=== PATIENT | male | born 1980 | race Caucasian/White ===

== ENCOUNTER 2018-11-13 19:48 | Emergency (ER) | payer MEDICAID ==
[~2018-11-13] VITALS: Ht 175.3 cm; Wt 153.3 kg
[2018-11-13] MEDS ORDERED: SODIUM CHLORIDE 0.9% 1,000 ML IV ONE (21:00)
[2018-11-13 21:54] LABS: Basophils # (auto) 0 uL; Basophils % (auto) 0.7 % (0.0-2.0); Eosinophils # (auto) 0 uL; Eosinophils % (auto) 0.2 % (0.0-7.0); Hematocrit 44.7 % (41.0-53.0); Hemoglobin 15.1 g/dL (13.5-17.5); Lymphocytes # (auto) 1.9 uL; Lymphocytes % (auto) 27.5 % (10.0-50.0); Mean Corpuscular Hemoglobin 29.2 pg (28.0-32.0); Mean Corpuscular Hgb Conc. 33.8 g/dL (32.0-36.0); Mean Corpuscular Volume 86.5 fL (80.0-100.0); Monocytes # (auto) 0.3 uL; Monocytes % (auto) 4.5 % (0.0-12.0); Neutrophils # (auto) 4.6 uL; Neutrophils % (auto) 67.1 % (37.0-80.0); Nucleated Red Blood Cells % 0.1 %; Platelet Count (auto) 94 10^3/uL (140-450); Red Blood Cells 5.17 10^6/uL (4.5-5.90); Red Cell Distribution Width 14.6 % (11.8-14.3); White Blood Cell 6.8 10^3/uL (4.4-10.8)
[2018-11-13 22:18] LABS: Acetaminophen < 2.0 ug/mL (10-30); Salicylate < 1.7 mg/dL (2.8-20.0)
[2018-11-13 22:21] LABS: Alanine Aminotransferase 28 U/L (16-61); Albumin 3.2 g/dL (3.4-5.0); Anion Gap 8 (5-15); Aspartate Aminotransferase 17 U/L (15-37); BUN/Creatinine Ratio 8.8; Blood Urea Nitrogen 7 mg/dL (7-18); Calcium 8.3 mg/dL (8.5-10.1); Carbon Dioxide 20 mmol/L (21-32); Chloride 116 mmol/L (98-107); GFR African American 138 mL/min; GFR Non-African American 114 mL/min; Glucose 119 mg/dL (74-106); Potassium 3.6 mmol/L (3.5-5.1); Sodium 144 mmol/L (136-145)
[2018-11-13 22:24] LABS: Alkaline Phosphatase 44 U/L (45-117); Bilirubin, Total 0.4 mg/dL (0.2-1.0); Total Protein 6.8 g/dL (6.4-8.2)
[2018-11-13 23:44] LABS: Urine Bacteria FEW /hpf (None Seen); Urine Blood Negative /uL (Negative); Urine Specific Gravity 1.015 (1.001-1.035); Urine WBC 2 /hpf (0 - 3)
[2018-11-13 23:48] LABS: Alcohol, Urine < 3.0 mg/dL (0-5); Amphetamine Screen, Urine NEGATIVE (NEGATIVE); Barbiturate Scree,Urine NEGATIVE (NEGATIVE); Benzodiazephine Screen, Urine POSITIVE (NEGATIVE); Cannabinoid Screen, Urine NEGATIVE (NEGATIVE); Cocaine Screen, Urine NEGATIVE (NEGATIVE); Phencyclidine Screen, Urine NEGATIVE (NEGATIVE)
[2018-11-13 23:56] LABS: Opiate Scree,Urine NEGATIVE (NEGATIVE)
[2018-11-14 02:11] LABS: Albumin 3.5 g/dL (3.4-5.0); Calcium 8.7 mg/dL (8.5-10.1); Potassium 3.8 mmol/L (3.5-5.1)
[2018-11-14 02:14] LABS: Bilirubin, Total 0.6 mg/dL (0.2-1.0); Total Protein 7.1 g/dL (6.4-8.2)
[2018-11-14] MEDS: DULoxetine HCL 30 MG CAP PO SCH ×2 (10:20→22:07)
[2018-11-14] MEDS ORDERED: ACETAMINOPHEN 325 MG TAB PO ONE (11:15)
[2018-11-14] MEDS: traZODone HCL 50 MG TAB PO SCH ×2 (14:00→22:07)
[2018-11-15] MEDS ORDERED: HALOPERIDOL LACTATE 5 MG/ML INJ VIAL IM ONE ×2 (01:15→03:15)
[2018-11-15] MEDS ORDERED: HALOPERIDOL LACTATE 5 MG/ML INJ VIAL IM PRN (03:00)
[2018-11-15] MEDS ORDERED: LORazepam 0.5 MG TAB PO ONE ×2 (03:45→20:45)
[2018-11-15] MEDS: traZODone HCL 50 MG TAB PO SCH ×2 (06:00→14:06)
[2018-11-15] MEDS ORDERED: HYDROcodone-ACET 5/325MG TAB PO ONE (14:15)
[2018-11-15] MEDS ORDERED: HYDROcodone-ACET 7.5/325MG TAB PO ONE (18:30)
[2018-11-15 20:35] VITALS: BP 111/70
== END 2018-11-15 20:42 | disposition short-term general hospital (02) ==
LOC: EDBD 19:48 → ER 19:51
DX: T42.4X2A Poisoning by benzodiazepines, intentional self-harm, initial encounter (principal); F32.9 Major depressive disorder, single episode, unspecified; Y92.89 Other specified places as the place of occurrence of the external cause
CPT/HCPCS: 36415; 51702; 80053; 80164; 80307; 80329; 81001; 84443; 85025; 93005; 94761; 96372; 99285; J1630; J7030

== ENCOUNTER 2019-02-04 04:33 | Emergency (ER) | payer MEDICAID ==
[~2019-02-04] VITALS: Ht 185.4 cm; Wt 136.1 kg
[2019-02-04] MEDS ORDERED: ACTIVATED CHARCOAL 50 GM/240 ML SOL ONE (04:58)
[2019-02-04] MEDS ORDERED: ACTIVATED CHARCOAL 50 GM/240 ML SOL PO ONE (05:00)
[2019-02-04] MEDS ORDERED: SODIUM CHLORIDE 0.9% 1,000 ML IV ONE ×2 (05:15→05:30)
[2019-02-04 05:36] LABS: Basophils # (auto) 0 uL; Basophils % (auto) 0.5 % (0.0-2.0); Eosinophils # (auto) 0 uL; Eosinophils % (auto) 0.3 % (0.0-7.0); Hematocrit 45.4 % (41.0-53.0); Hemoglobin 15.6 g/dL (13.5-17.5); Lymphocytes % (auto) 26.3 % (10.0-50.0); Mean Corpuscular Hemoglobin 29.4 pg (28.0-32.0); Mean Corpuscular Hgb Conc. 34.3 g/dL (32.0-36.0); Mean Corpuscular Volume 85.8 fL (80.0-100.0); Monocytes # (auto) 0.3 uL; Monocytes % (auto) 3.8 % (0.0-12.0); Neutrophils # (auto) 5.3 uL; Neutrophils % (auto) 69.1 % (37.0-80.0); Platelet Count (auto) 176 10^3/uL (140-450); Red Blood Cells 5.29 10^6/uL (4.5-5.90); Red Cell Distribution Width 14.7 % (11.8-14.3); White Blood Cell 7.6 10^3/uL (4.4-10.8)
[2019-02-04 05:50] LABS: Albumin 3.6 g/dL (3.4-5.0); Anion Gap 10 (5-15); Blood Urea Nitrogen 8 mg/dL (7-18); Calcium 8.8 mg/dL (8.5-10.1); Carbon Dioxide 23 mmol/L (21-32); Chloride 111 mmol/L (98-107); Glucose 148 mg/dL (74-106); Magnesium 1.9 mg/dL (1.6-2.6); Potassium 3.3 mmol/L (3.5-5.1); Sodium 144 mmol/L (136-145)
[2019-02-04 05:52] LABS: Salicylate < 1.7 mg/dL (2.8-20.0)
[2019-02-04 05:54] LABS: Acetaminophen < 2.0 ug/mL (10-30)
[2019-02-04 05:55] LABS: Alanine Aminotransferase 30 U/L (16-61); Alkaline Phosphatase 44 U/L (45-117); Aspartate Aminotransferase 18 U/L (15-37); BUN/Creatinine Ratio 9.5; Bilirubin, Total 0.7 mg/dL (0.2-1.0); Blood Alcohol < 3.0 mg/dL (0-5); GFR African American 131 mL/min; GFR Non-African American 108 mL/min; Total Protein 7.2 g/dL (6.4-8.2)
[2019-02-04 06:33] LABS: Urine Bacteria FEW /hpf (None Seen); Urine Blood Negative /uL (Negative); Urine Mucus FEW (None Seen); Urine Specific Gravity 1.013 (1.001-1.035); Urine WBC 1 /hpf (0 - 3)
[2019-02-04 06:48] LABS: Alcohol, Urine < 3.0 mg/dL (0-5); Amphetamine Screen, Urine NEGATIVE (NEGATIVE); Barbiturate Scree,Urine NEGATIVE (NEGATIVE); Benzodiazephine Screen, Urine POSITIVE (NEGATIVE); Cannabinoid Screen, Urine NEGATIVE (NEGATIVE); Cocaine Screen, Urine NEGATIVE (NEGATIVE); Opiate Scree,Urine NEGATIVE (NEGATIVE); Phencyclidine Screen, Urine NEGATIVE (NEGATIVE)
[2019-02-05] MEDS ORDERED: ACETAMINOPHEN 325 MG TAB PO ONE ×2 (06:00→15:30)
[2019-02-05 15:56] VITALS: BP 108/65
== END 2019-02-05 16:38 | disposition short-term general hospital (02) ==
LOC: EDBD 04:33 → ER 04:36
DX: T42.4X2A Poisoning by benzodiazepines, intentional self-harm, initial encounter (principal); Y92.89 Other specified places as the place of occurrence of the external cause; M54.5 Low back pain; G89.29 Other chronic pain
CPT/HCPCS: 36415; 71045; 80053; 80307; 80320; 80329; 81001; 82962; 83735; 83880; 84484; 85025; 93005; 99285; J7030

== ENCOUNTER 2019-12-17 12:48 | Inpatient (IN) | payer MEDICAID ==
[~2019-12-17] VITALS: Ht 185.4 cm; Wt 157.5 kg
[2019-12-17] MEDS ORDERED: SODIUM CHLORIDE 0.9% 1,000 ML IV ONE (13:02)
[2019-12-17] MEDS ORDERED: SODIUM CHLORIDE 0.9% 500 ML IVB ONE (13:02)
[2019-12-17 13:22] LABS: Basophils # (auto) 0 10 ^3/uL (0-0.2); Basophils % (auto) 0.3 % (0.0-2.0); Eosinophils # (auto) 0 10 ^3/uL (0-0.8); Hematocrit 50.4 % (41.0-53.0); Hemoglobin 17.3 g/dL (13.5-17.5); Lymphocytes # (auto) 1.4 10 ^3/uL (0.4-5.4); Lymphocytes % (auto) 12.7 % (10.0-50.0); Mean Corpuscular Hemoglobin 29.8 pg (28.0-32.0); Mean Corpuscular Hgb Conc. 34.2 g/dL (32.0-36.0); Mean Corpuscular Volume 87.1 fL (80.0-100.0); Monocytes # (auto) 0.2 10 ^3/uL (0-1.3); Monocytes % (auto) 2.1 % (0.0-12.0); Neutrophils # (auto) 9.5 10 ^3/uL (1.6-8.6); Neutrophils % (auto) 84.9 % (37.0-80.0); Nucleated Red Blood Cells % 0.1 %; Platelet Count (auto) 224 10^3/uL (140-450); Red Blood Cells 5.79 10^6/uL (4.5-5.90); Red Cell Distribution Width 14.1 % (11.8-14.3); White Blood Cell 11.2 10^3/uL (4.4-10.8)
[2019-12-17 13:39] LABS: Albumin 3.8 g/dL (3.4-5.0); Anion Gap 6 (5-15); Blood Urea Nitrogen 13 mg/dL (7-18); Carbon Dioxide 25 mmol/L (21-32); Chloride 109 mmol/L (98-107); Glucose 187 mg/dL (74-106); Magnesium 2.4 mg/dL (1.6-2.6); Potassium 4.2 mmol/L (3.5-5.1); Sodium 140 mmol/L (136-145)
[2019-12-17 13:39] LABS: Alcohol, Urine < 3.0 mg/dL (0-10); Amphetamine Screen, Urine NEGATIVE (NEGATIVE); Barbiturate Scree,Urine NEGATIVE (NEGATIVE); Benzodiazephine Screen, Urine NEGATIVE (NEGATIVE); Cannabinoid Screen, Urine NEGATIVE (NEGATIVE); Cocaine Screen, Urine NEGATIVE (NEGATIVE); Opiate Scree,Urine NEGATIVE (NEGATIVE); Phencyclidine Screen, Urine NEGATIVE (NEGATIVE)
[2019-12-17 13:45] LABS: Alanine Aminotransferase 28 U/L (16-61); Alkaline Phosphatase 57 U/L (45-117); Aspartate Aminotransferase 10 U/L (15-37); Bilirubin, Total 1.2 mg/dL (0.2-1.0); GFR African American 97 mL/min; GFR Non-African American 80 mL/min; Total Protein 8.2 g/dL (6.4-8.2)
[2019-12-17 13:48] LABS: Urine Bacteria NONE SEEN /hpf (None Seen); Urine Blood Negative /uL (Negative); Urine Mucus FEW (None Seen); Urine Specific Gravity 1.017 (1.001-1.035); Urine WBC 2 /hpf (0 - 3)
[2019-12-17] MEDS ORDERED: NITROGLYCERIN 0.4 MG SL TAB SL PRN (16:45)
[2019-12-17] MEDS ORDERED: MORPHINE SULF INJ 2 MG/ML SYRINGE 1ML IV PRN (16:45)
[2019-12-17] MEDS ORDERED: ONDANSETRON HCL 4 MG/2 ML VIAL IV PRN (16:45)
[2019-12-17] MEDS ORDERED: DEXTROSE (50%) 50ML SYRG IV PRN (16:45)
[2019-12-17] MEDS: ACCU-CHEK COMFORT CURVE STRIP VI SCH ×2 (17:43→22:00)
[2019-12-17] MEDS: InsuLIN REG 1unit/0.01ml Soln (100units/ml) SC SCH ×2 (17:47→22:00)
[2019-12-17] MEDS: D5W/SOD CHLO 0.9% 1,000 ML IV SCH (17:53)
--- NOTE | 2019-12-17 19:20 | NUR ---
Telemetry admit from [facility] admitted to Telemetry unit after SBAR received. Patient oriented to MIKAEL GAMBLE [facility], primary RN, unit, room, bed, and unit policies regarding patient care and visiting hours. Patient now on continuous telemetry monitoring, tele box # 25 and telemetry reading on arrival to unit is sinus bradycardia. Patient weighed by bedscale and encouraged to call if they need something. All questions and concerns addressed, patient verbalized understanding. Bed in lowest locked position, call light within reach, side rails up x2, fall precautions in place. Will continue to monitor Q1hr and PRN.
[2019-12-17] MEDS ORDERED: PROP80CA40 PO (19:46)
[2019-12-17] MEDS ORDERED: ERGO1CAP23 PO (19:46)
[2019-12-17] MEDS ORDERED: AMPH10TA PO (19:46)
[2019-12-17] MEDS ORDERED: MORP1TAB12 PO (19:46)
[2019-12-17] MEDS ORDERED: LURA80TA PO (19:46)
[2019-12-17] MEDS ORDERED: DULO60CA PO (19:46)
[2019-12-17] MEDS ORDERED: DIVA500T53 PO (19:46)
[2019-12-17] MEDS ORDERED: TOPI50TA32 PO (19:46)
[2019-12-17] MEDS ORDERED: BACL10TA PO (19:46)
[2019-12-17 19:50] VITALS: BP 125/77
--- NOTE | 2019-12-17 21:20 | NUR ---
Poison control Spoke with poison control for patient update, per poison control they recommend valproic acid lab redraw, acetaminophen lab, and ASA lab. Will notify hospitalist for orders.
[2019-12-17 22:00] VITALS: BP 123/70
[2019-12-18 00:28] LABS: Valproic Acid (Depakene) 41 ug/mL (50-100)
[2019-12-18 00:29] LABS: Acetaminophen < 2.0 ug/mL (10-30)
[2019-12-18] MEDS: D5W/SOD CHLO 0.9% 1,000 ML IV SCH ×4 (00:45→23:33)
[2019-12-18 05:00] VITALS: BP 115/68
--- NOTE | 2019-12-18 06:00 | NUR ---
Poison control Received a call from poison control for patient update, per poison control, recommends supportive care and monitoring patients tele PQ intervals. Continue care.
[2019-12-18] MEDS: InsuLIN REG 1unit/0.01ml Soln (100units/ml) SC SCH ×4 (06:35→22:09)
[2019-12-18] MEDS: ACCU-CHEK COMFORT CURVE STRIP VI SCH ×4 (06:35→22:10)
--- NOTE | 2019-12-18 06:44 | NUR ---
Tele psych Paper work faxed over, will place in patient chart.
[2019-12-18] MEDS: ACETAMINOPHEN 500 MG TAB PO PRN ×4 (08:59→22:16)
[2019-12-18 09:00] VITALS: BP 132/75
--- NOTE | 2019-12-18 12:00 | NUR ---
EEG COMPLETED AT BEDSIDE. PRIMARY RN ZAYRA RAE.
[2019-12-18 13:00] VITALS: BP 127/76
--- NOTE | 2019-12-18 13:05 | NUR ---
1:[address] TAYLOR IN HOUSE, STATED PT WILL LIKELY NOT NEED SWALLOW EVAL. PT GIVEN JELLO AND CRACKERS, TOLERATED WITHOUT DIFFICULTY. LUNCH TRAY GIVEN, TOLERATED APPROX. 25% LUNCH. MEDICATED WITH TYLENOL FOR BACK PAIN. COOPERATIVE WITH CARES.
--- NOTE | 2019-12-18 15:14 | NUR ---
Nutrition Consult/assessment Notes please see attached link for complete assessment [employer] needs ABW 120 [id number] kcals (17-20 kcal/kgABW), Est Protein needs: 72-96 gms/day (0.6-0.8 gm/kgABW r/t elev ammonia). Will continue to monitor and reassess prn. Addendum: 12/18/19 at [address] Amended: Links added.
--- NOTE | 2019-12-18 16:06 | NUR ---
Assessment Patient is a 39-year-old male who is alert and oriented. Prior to admission patient lived home with family and functioned independently. Prior to admission patient care for his own ADLs. Patient informed me he came to the hospital due to taking too much baclofen. Patient stated he has not been able to sleep and thought by taking more baclofen it would help him sleep at night but he began to feel nausea and vomit and was brought to the hospital via EMS. Per patient he does not have suicidal attempts. Advised patient there is a social service consult for home health safety evaluation and outpatient psychiatric. Per patient he sees Dr. Morrison at [facility] and has an appointment on 2019. Informed patient clinical information will be faxed to a contracted agency. Faxed clinical information to [facility] and [facility]. Per Chela with [facility] patient has been accepted and service to start within 24-48hrs upon d/c day. Addendum: 12/18/19 at 1607 by MATTHEW KC Amended: Links added.
[2019-12-18 16:47] VITALS: BP 113/75
--- NOTE | 2019-12-18 19:20 | NUR ---
call placed to pt mother, Madai, to bring pt meds from home. no answer, unable to leave voice mail.
[2019-12-18 22:00] VITALS: BP 127/76
[2019-12-18] MEDS: DIVALPROEX SODIUM 500 MG PO SCH (22:00)
[2019-12-19 05:00] VITALS: BP 129/70
[2019-12-19] MEDS: ACCU-CHEK COMFORT CURVE STRIP VI SCH ×2 (06:49→11:30)
[2019-12-19] MEDS: InsuLIN REG 1unit/0.01ml Soln (100units/ml) SC SCH ×2 (06:50→11:30)
[2019-12-19] MEDS: D5W/SOD CHLO 0.9% 1,000 ML IV SCH (06:54)
[2019-12-19] MEDS ORDERED: DULoxetine HCL 30 MG CAP PO SCH (07:00)
[2019-12-19] MEDS: ACETAMINOPHEN 500 MG TAB PO PRN (07:00)
[2019-12-19] MEDS ORDERED: PROP80CA40 PO (08:11)
[2019-12-19] MEDS: DIVALPROEX SODIUM 500 MG PO SCH (09:59)
--- NOTE | 2019-12-19 14:59 | NUR ---
DISCHARGE INSTRUCTIONS GIVEN TO PT. PT VERBALIZED UNDERSTANDING, ALL APPROPRIATE PAPERWORK SIGNED. IV AND TELE BOX REMOVED. PT DISCHARGED HOME WITH FAMILY.
== END 2019-12-19 14:45 | disposition home health service (06) | DRG 812 ==
LOC: ER 12:48 → EDBD 12:48 → TELE-CENTR 12:49
PROVIDERS: ADMIT Hospitalist; ATTEND Hospitalist
DX: T50.901A Poisoning by unspecified drugs, medicaments and biological substances, accidental (unintentional), initial encounter (principal); G92 Toxic encephalopathy; F31.9 Bipolar disorder, unspecified; R73.9 Hyperglycemia, unspecified; Z91.19 Patient's noncompliance with other medical treatment and regimen; R25.1 Tremor, unspecified; F11.20 Opioid dependence, uncomplicated; F17.200 Nicotine dependence, unspecified, uncomplicated; F31.30 Bipolar disorder, current episode depressed, mild or moderate severity, unspecified; G89.4 Chronic pain syndrome; Z68.42 Body mass index [BMI] 45.0-49.9, adult; Z82.49 Family history of ischemic heart disease and other diseases of the circulatory system; Z91.14 Patient's other noncompliance with medication regimen; Y92.89 Other specified places as the place of occurrence of the external cause; R00.1 Bradycardia, unspecified
CPT/HCPCS: 36415; 51702; 70450; 71045; 80053; 80164; 80307; 80329; 81001; 82140; 82962; 83735; 84484; 85025; 95819; 96360; 96361; 97163; G0378; J1815; J2405; J7042

== ENCOUNTER 2024-02-27 05:18 | Emergency (ER) | payer MEDICAID ==
[~2024-02-27] VITALS: Ht 175.3 cm; Wt 146.3 kg
[~2024-02-27 05:18] MED LIST: DIVA-91 PO; DULO60CA41 PO; LUMA42CA PO; MORP1TAB12 PO; PERCOT PO
[2024-02-27 05:30] VITALS: BP 146/90; PULSE 120; RESP 18; O2SAT 97
[2024-02-27] MEDS ORDERED: SODIUM CHLORIDE 0.9% 500 ML IVB ONE (07:15)
--- NOTE | 2024-02-27 07:41 | ED.PDOC ---
Wallacesupriya. trauma (HPI) HPI Comments 43 Y M with a PMHX of depression, schizophrenia, and neuropathy presents to the ED with CC of fall. Patient states that he slipped on a pill bottle and fell forward hitting his head falling into his entertainment center. As a result patient has a medium sized sized hematoma to his right forehead but denies any neck, knee pain, or LOC. Patient relays that he took Percocet and Flexeril for the pain after the fall but also takes these medications for his neuropathy. Patient denies any tobacco usage, ETOH, or illicit drugs. Chief Complaint: Fall Injury Time Seen by MD: 07:30 Primary Care Provider: CARMELITA Allergies: Coded Allergies: NO KNOWN ALLERGIES (Unverified , 11/13/18) Home Meds Reported Medications Oxycodone W/ Acetaminophen (Percocet 5/325MG) 1 Tab Tb, 1 TAB PO QID, TAB 05/16/22 Lumateperone Tosylate (Caplyta) 42 Mg Cap, 42 MG PO DAILY, CAP 05/16/22 Morphine Sulfate (Morphine Sulfate Cr) 15 Mg Tab, 1 TAB PO 12/17/19 Duloxetine Hcl (Cymbalta) 60 Mg Cap, 60 MG PO QAM, CAP 12/17/19 Divalproex Sodium (Depakote) 500 Mg Tab, 1 TAB PO BID, #60 TAB 1 Refill 12/17/19 Information Source: Patient Mode of Arrival: Ambulatory Severity: Mild Timing: Hours Duration: Since onset Location: Head, Other (forehead) Location of laceration: Head Associated signs and symtoms: Headache, Other (slurred speech) Past Medical History PAST MEDICAL HISTORY: Depression Surgical History: Denies all surgeries Family History Family History: Unobtainable Social History Smoker: Non-Smoker Alcohol: Denies ETOH Use Drugs: Denies Drug Use Lives In: Home Constitutional: denies: chills, diaphoresis, fatigue, fever, malaise, sweats, weakness, others EENTM: denies: blurred vision, double vision, ear bleeding, ear discharge, ear drainage, ear pain, ear ringing, eye pain, eye redness, hearing loss, mouth pain, mouth swelling, nasal discharge, nose bleeding, nose congestion, nose pain, photophobia, tearing, throat pain, throat swelling, voice changes, others Respiratory: denies: cough, hemoptysis, orthopnea, SOB at rest, shortness of breath, SOB with excertion, stridor, wheezing, others Cardiovascular: denies: chest pain, dizzy spells, diaphoresis, Dyspnea on exertion, edema, irregular heart beat, left arm pain, lightheadedness, palpitations, PND, syncope, others Gastrointestinal: denies: abdomen distended, abdominal pain, blood streaked bowels, constipated, diarrhea, dysphagia, difficulty swallowing, hematemesis, melena, nausea, poor appetite, poor fluid intake, rectal bleeding, rectal pain, vomiting, others Genitourinary: denies: burning, dysuria, flank pain, frequency, hematuria, incontinence, penile discharge, penile sore, pain, testicle pain, testicle swelling, urgency, others Neurological: reports: headache; denies: dizziness, fainting, left sided numbness, left sided weakness, numbness, paresthesia, pre-existing deficit, right sided numbness, right sided weakness, seizure, speech problems, tingling, tremors, weakness, others Musculoskeletal: denies: back pain, gout, joint pain, joint swelling, muscle pain, muscle stiffness, neck pain, others Integumetry: denies: bruises, change in color, change in hair/nails, dryness, laceration, lesions, lumps, rash, wounds, others Allergic/Immunocompromised: denies: Difficulty Healing, Frequent Infections, Hives, Itching, others Hematologic/Lymphatic: denies: anemia, blood clots, easy bleeding, easy bruising, swollen glands, others Endocrine: denies: excessive hunger, excessive sweating, excessive thirst, excessive urination, flushing, intolerance to cold, intolerance to heat, unexplained weight gain, unexplained weight loss, others Psychiatric: denies: anxiety, bipolar disorder, depression, hopeless, panic disorder, schizophrenia, sleepless, suicidal, others Physical Exam General Appearance: Mild Distress, Normal, Other (May have had a syncopal episode) HEENT: Normal ENT Inspection, PERRL/EOMI, Pharynx Normal, TMs Normal, Other (Right-sided forehead hematoma) Neck: Full Range of Motion, Non-Tender, Normal, Normal Inspection Respiratory: Chest Non-Tender, Lungs Clear, No Accessory Muscle Use, No Respiratory Distress, Normal Breath Sounds Cardiovascular: No Edema, No JVD, No Murmur, No Gallop, Normal Peripheral Pulses, Regular Rate/Rhythm Breast Exam: Deferred Gastrointestinal: No Organomegaly, Non Tender, No Pulsatile Mass, Normal Bowel Sounds, Soft Genitalia: Deferred Pelvic: Deferred Rectal: Deferred Extremities: No calf tenderness, Normal capillary refill, Normal inspection, Normal range of motion, Non-tender, No pedal edema Musculoskeletal : Apperance: Normal Neurologic: Alert, sonography technician II-XII nml as Tested, No Motor Deficits, Normal Affect, Normal Mood, No Sensory Deficits Cerebellar Function: Normal Reflexes: Normal Skin: Bruises, Dry, Normal Color, Warm Peripheral Pulses: 1+ carotid (R), 1+ carotid (L) Lymphatic: No Adenopathy Was a procedure done? Was a procedure done?: No Differential Diagnosis Multiple Trauma: Closed Head Injury, Fractures, Contusion, Hematoma Neck Injury: N/A X-Ray, Labs, Meds, VS Vital Signs Date Time Temp Pulse Resp B/P (MAP) Pulse Ox O2 Delivery O2 Flow Rate FiO2 02/27/24 05:30 98.0 120 18 146/90 (108) 97 X-Ray, Labs, Meds, VS Comment Course in the emergency department eventful patient had a fall face down has forehead hematoma is neck is fine Workup ordered Patient eloped Time of 1ST Reevaluation: 08:30 Reevaluation 1ST: Unchanged Patient Education/Counseling: Diagnosis, Treatment Family Education/Counseling: No Family Present Departure 1 Departure Time of Disposition: 09:29 Impression: Primary Impression: Fall at home Qualified Codes: W19.XXXA - Unspecified fall, initial encounter; Y92.009 - Unspecified place in unspecified non-institutional (private) residence as the place of occurrence of the external cause Additional Impressions: Episode of syncope Qualified Codes: R55 - Syncope and collapse Schizophrenia Qualified Codes: F20.1 - Disorganized schizophrenia Traumatic hematoma of forehead Qualified Codes: S00.83XA - Contusion of other part of head, initial encounter Disposition: 07 LEFT AWOL/ELOPED Condition: Fair Discharged With: Self Critical Care Note Critical Care Time?: No Stability Stability form required: No Heart Score Heart Score: Heart Score Response (Comments) Value History N/A 0 EKG N/A 0 Age <45 0 Risk Factors 1 or 2 risk factors 1 Troponin N/A 0 Total 1 I personally scribed for SHAWANDA UMANA MD ([email or web address]) on 02/27/24 at 07:41. Electronically submitted by Jessie Santos ([email or web address]). SHAWANDA UMANA MD Feb 27, 2024 07:41
== END 2024-02-27 08:10 | disposition left against medical advice (07) ==
LOC: ER 05:18
DX: S00.83XA Contusion of other part of head, initial encounter (principal); R55 Syncope and collapse; F32.A Depression, unspecified; G62.9 Polyneuropathy, unspecified; F20.9 Schizophrenia, unspecified; W01.0XXA Fall on same level from slipping, tripping and stumbling without subsequent striking against object, initial encounter; Y93.89 Activity, other specified; Y92.098 Other place in other non-institutional residence as the place of occurrence of the external cause; Y99.8 Other external cause status